=== PATIENT | female | born 1950 | race Caucasian/White ===

== ENCOUNTER → 2018-08-12 12:05 | Outpatient (CLI) | payer MEDICARE, SELFPAY ==
--- NOTE | 2018-08-12 | DI.MG.S_ITS ---
BILATERAL DIGITAL SCREENING MAMMOGRAM 3D/2D WITH CAD: 08/12/2018 CLINICAL: Routine screening. Comparison is made to exams dated: 06/27/2016 mammogram - [facility] and 08/29/2013 mammogram - [facility]. There are scattered fibroglandular elements in both breasts. Current study was also evaluated with a Computer Aided Detection (CAD) system. No significant masses, calcifications, or other findings are seen in either breast. There has been no significant interval change. IMPRESSION: NEGATIVE There is no mammographic evidence of malignancy. A 1 year screening mammogram is recommended. This exam was interpreted at Station ID: [id number]. NOTE: For mammograms, a report in lay terms will be sent to the patient. Approximately 15% of breast malignancies will not be visualized mammographically. In the management of a palpable breast mass, a negative mammogram must not discourage biopsy of a clinically suspicious lesion. Electronically Signed By: Maryse wolff/ben:08/13/2018 12:47:10 letter sent: Normal Exam ACR BI-RADS Category 1: Negative 3341F
== END ==
PROVIDERS: PCP Internal Medicine; Visit Provider Internal Medicine
DX: Z12.31 Encounter for screening mammogram for malignant neoplasm of breast (principal)
CPT/HCPCS: 77063; 77067

== ENCOUNTER → 2019-01-05 09:58 | Outpatient (CLI) | payer MEDICARE, SELFPAY ==
--- NOTE | 2019-01-05 | DI.RAD.S_ITS ---
PROCEDURE: XR KNEE LT 3V INDICATIONS: LEFT HIP/LEFT KNEE PAIN TECHNIQUE: 3 views of the knee were acquired. COMPARISON: [facility], , KNEE 1-2 VIEWS RIGHT, 10/22/2016, 10:32. FINDINGS: Bones: Very mild medial femoral tibial compartment joint space narrowing. No fractures or dislocations. No suspicious bony lesions. Soft tissues: No joint effusion. No suspicious soft tissue calcifications. IMPRESSION: Mild medial femoral tibial compartment osteophytes. No left knee fracture or dislocation. No joint effusion. Dictated by: Campbell Fong M.D. on 01/05/2019 at 11:57 Approved by: Campbell Fong M.D. on 01/05/2019 at 11:58
--- NOTE | 2019-01-05 | DI.RAD.S_ITS ---
PROCEDURE: XR HIP W PEL IF DONE LT 2V INDICATIONS: LEFT HIP/LEFT KNEE PAIN TECHNIQUE: AP pelvis with lateral view(s) of the left hip(s). COMPARISON: None. FINDINGS: Bones: Moderate left hip joint osteoarthritis and mild to moderate right hip joint osteoarthritis is seen. No fractures or dislocations. No evidence of avascular necrosis of femoral head. Pelvic ring appears intact. No suspicious bony lesions. Degenerative disc disease in visualized lower lumbar spine at L4-5 and L5-S1 levels are seen. Soft tissues: The visualized bowel gas pattern is normal. No suspicious soft tissue calcifications. IMPRESSION: Left worse than right bilateral hip joint osteoarthritis. No hip fracture or dislocation. No evidence of avascular necrosis. Dictated by: Campbell Fong M.D. on 01/05/2019 at 11:56 Approved by: Campbell Fong M.D. on 01/05/2019 at 11:57
== END ==
PROVIDERS: PCP Internal Medicine; Visit Provider Internal Medicine
DX: M25.562 Pain in left knee (principal); M25.552 Pain in left hip; M16.0 Bilateral primary osteoarthritis of hip; M51.36 Other intervertebral disc degeneration, lumbar region; M51.37 Other intervertebral disc degeneration, lumbosacral region
CPT/HCPCS: 73502; 73562

== ENCOUNTER → 2019-07-22 10:08 | Outpatient (CLI) | payer MEDICARE, SELFPAY | PROVIDERS: PCP Internal Medicine; Visit Provider Internal Medicine | DX: M85.851 Other specified disorders of bone density and structure, right thigh (principal); Z78.0 Asymptomatic menopausal state; Z82.62 Family history of osteoporosis | CPT/HCPCS: 77080 ==

== ENCOUNTER → 2020-07-16 16:21 | Outpatient (CLI) | payer MEDICARE, SELFPAY ==
--- NOTE | 2020-07-16 | DI.MG.S_ITS ---
BILATERAL DIGITAL SCREENING MAMMOGRAM 3D/2D WITH CAD: 07/16/2020 CLINICAL: Routine screening. Comparison is made to exams dated: 08/12/2018 mammogram, 06/27/2016 mammogram - [facility], and 08/29/2013 mammogram - [facility]. There are scattered fibroglandular elements in both breasts. Current study was also evaluated with a Computer Aided Detection (CAD) system. No significant masses, calcifications, or other findings are seen in either breast. There has been no significant interval change. IMPRESSION: NEGATIVE There is no mammographic evidence of malignancy. A 1 year screening mammogram is recommended. This exam was interpreted at Station ID: [id number]. NOTE: For mammograms, a report in lay terms will be sent to the patient. Approximately 15% of breast malignancies will not be visualized mammographically. In the management of a palpable breast mass, a negative mammogram must not discourage biopsy of a clinically suspicious lesion. Electronically Signed By: Niels nieves/ben:07/16/2020 16:59:43 letter sent: Normal Exam ACR BI-RADS Category 1: Negative 3341F
== END ==
PROVIDERS: PCP Internal Medicine; Referring Provider Internal Medicine; Visit Provider Internal Medicine
DX: Z12.31 Encounter for screening mammogram for malignant neoplasm of breast (principal)
CPT/HCPCS: 77063; 77067

== ENCOUNTER → 2020-07-18 20:06 | Outpatient (ROUT) | payer MEDICARE, SELFPAY ==
[2020-07-18 20:56] LABS: Alanine Aminotransferase 21 IU/L (<35); Albumin Globulin Ratio 1.5 (1.0-2.8); Alkaline Phosphatase 67 U/L (38-126); Aspartate Aminotransferase 29 IU/L (14-36); BUN Creatinine Ratio 18.3 (6-22); Bilirubin Total 0.4 mg/dL (0.2-1.3); Blood Urea Nitrogen 19 mg/dL (7-17); Calcium 9.2 mg/dL (8.4-10.2); Carbon Dioxide 28 mmol/L (22-32); Chloride 107 mmol/L (98-107); Cholesterol 165 mg/dL (140-199); Estimated Glomerular Filt Rate 52.1 mL/min (>60); Globulin 2.6 g/dL (1.7-4.1); Glucose 86 mg/dL (80-110); HDL Cholesterol 62 mg/dL (40-60); HEMOLYSIS < 15 (0-50); LDL Cholesterol Calculated 84 mg/dL (<100); Potassium 4.3 mmol/L (3.4-5.1); Sodium 139 mmol/L (137-145); Total Protein 6.6 g/dL (6.3-8.2); Triglycerides 96 mg/dL (35-150)
== END ==
PROVIDERS: PCP Internal Medicine; Visit Provider Internal Medicine
DX: M85.80 Other specified disorders of bone density and structure, unspecified site (principal); E78.5 Hyperlipidemia, unspecified
CPT/HCPCS: 80053; 80061

== ENCOUNTER 2020-12-31 10:30 | Outpatient (RCR) | payer MEDICARE, SELFPAY ==
--- NOTE | 2020-11-13 16:07 | PT.OPPOC ---
Physical, Occupational & Speech Therapy At [facility] Current Diagnoses Low back pain (11/13/20) Abnormal posture (11/13/20) Weakness (11/13/20) Visit Care Team Role Provider Type Dana Dunlap PA-C Attending Provider Non-Staff Primary Care Provider Referring Provider Specialty: Internal Medicine Address: [address] [place] [address], [facility] Email: [email or web address] Plan Of Care PT-OP-T Assessment and Plan Start: 11/12/20 16:52 Freq: Status: Active Protocol: Document 11/14/20 12:56 ANN (Rec: 11/14/20 16:06 SAK [id number]) Physical Therapy Assessment Rehab Potential Rehabilitation Potential Good Evaluation Complexity Number of Personal Factors/Comorbidities 1-2 Number of Body Systems Impaired 3 Clinical Presentation at Evaluation Evolving Impairments Impairments Activity Tolerance,Pain, Strength Goals Four Impairment postural dysfunction Short Term Goal (STG) Patient to demonstrate good understanding of neutral postural alignment and be able to self correct with min cues STG Duration 12/14/20 Plastic Maker Goal (LTG) Patient able to demonstrate neutral postural alignment statically, and with dynamic functional activities. LTG Duration 01/13/21 Three Impairment weakness throughout core and hips Short Term Goal (STG) patient to be independent and compliant with HEP for purposes of strenghtening and core stabilization for improved function and quality of life STG Duration 12/14/20 Mcc Goal (LTG) Patient to demonstrate at least 4+/5 muscle strength throughout core and hips LTG Duration 01/13/21 Two Impairment pain varies from 3-8/10 in lumbar spine, especially with standing and walki Short Term Goal (STG) decrease pain to no greater than 5/10 with usual activity STG Duration 12/14/20 Mcc Goal (LTG) Decrease pain to no greater than 3/10 with usual activity LTG Duration 01/13/21 One Impairment Oswestry Disability Index score 20% Short Term Goal (STG) Improve activity tolerance as evidenced by decrease in NITO to no greater than 10% STG Duration 12/14/20 Plastic Maker Goal (LTG) Improve activity tolerane as evidenced by decrease in NITO to no greater than 5% LTG Duration 01/13/21 Assessment Summary Assessment Patient presents with function -limiting bilateral LBP, worst with standing and walking. She presents with excessive lumbar lordosis and thoracic kyphosis, deficits in strength in core and hips. Feel she would benefit from PT for postural improvement, therapeutic exercises for core stabilization and strengthening. Modalities and manual techniques as indicated for pain management. She is highly motivated and receptive to instruction. Physical Therapy Plan Frequency and Duration Frequency of Treatment 2x/Week Duration of Treatment 8 weeks Plan of Care Start Date 11/13/20 Plan of Care End Date 01/13/21 Therapeutic Interventions Therapeutic Interventions Gait Training,Home Exercise Program,Neuromuscular Re- education,Patient/Caregiver Education,Self-Care/Home Management,Soft Tissue Mobilization,Taping, Therapeutic Activities, Therapeutic Exercises Modalities Cold Pack/Ice Massage,Electric Stimulation,Hot Packs, Infrared Therapy,Traction- Mechanical,Ultrasound Next Visit Focus/Plan Next Note Type Treatment Note Next Visit Plan Review HEP, further postural correction, core stabilization , and strengthening exercises with progression as tolerated. Modalities and manual therapy as indicated for pain reduction. Plan of Care Dates Plan of Care Start Date 11/13/20 Plan of Care End Date 01/13/21 Electronically Signed by: Renetta Donnelly, PT 11/14/20 [id number] Please Sign and Return: I have reviewed this Plan of Care and certify that the skilled therapy services above are required to meet the patient?s needs. Physician Signature Date Printed Name and Credentials Clinical Instructor Signature Printed Name and Credentials
--- NOTE | 2020-11-13 16:08 | PT.OIE ---
Current Diagnoses Low back pain (11/13/20) Abnormal posture (11/13/20) Weakness (11/13/20) Visit Care Team Role Provider Type Dana Dunlap PA-C Attending Provider Non-Staff Primary Care Provider Referring Provider Specialty: Internal Medicine Address: [address] [place] [address], [facility] Email: [email or web address] [facility] Initial Evaluation PT-OP-A Visit Information Start: 11/12/20 16:52 Freq: Status: Active Protocol: Document 11/13/20 12:56 SAK (Rec: 11/13/20 13:39 SAK [id number]) Out-Patient Physical Therapy Visit Information Visit Information Visit Type Initial Evaluation Visit Start Time 13:00 Visit Stop Time 13:56 Total Visit Minutes 56 Visit Number 1 Evaluation Information Evaluation Date 11/13/20 Precautions Precautions left knee pain, left hip pain (fell down flight of concrete stairs 2010) landed on left knee jamming up into hip (had stress fractures in hip joint and loose body of bone); can't tolerate breastroke, rotation in left hip very limited. PT-OP-B Current Condition Start: 11/12/20 16:52 Freq: Status: Active Protocol: Document 11/13/20 12:56 SAK (Rec: 11/13/20 13:39 SAK [id number]) Current Condition History of Current Condition Onset Date since was in 20's Current Complaints liliana LBP History of Current Condition long history of LBP, worst with standing. States increase in pain with prolonged standing; ie dishes, taking a walk, standing at green party. Usual exercises: biking (better than walking), walking, swimming (has endless pool) but hasn't started; jogs and swims in water. Occasional use of ice and heat . Tries to do some core exercises. No PT before. Has done some exercise classses in the past. Prior Treatments and Tests No recent x-rays; 20+ years ago showed arthritis, orthotics recommended and initially wore custom, now off the shelf. Prior Functional Status Baseline Function- Other mild pain with standing and walking Current Functional Impairments (Reported) Functional Limitations- Other difficult to stand and walk usual times or distances due to pain Personal Factors Other Personal Factors That May Effect recently Therapy/Recovery PT-OP-C Subjective Start: 11/12/20 16:52 Freq: Status: Active Protocol: Document 11/14/20 12:56 SAK (Rec: 11/14/20 16:06 [facility] [id number]) Patient Questionnaires Oswestry Low Back Index Oswestry Score 20 OP-PT Pain Assessment Pain Assessment Grid Paper Pain Assessment Grid Completed Yes Location bilateral lumbar spine Scale Used Numeric (0 - 10) Description Aching,Chronic,Pressure, Pulling,Tender,Tightness Frequency Frequent Pain Aggravating Factors Activity,Standing,Walking Other Pain Alleviating Factors bending forward Patient Stated Pain Goal minimize pain to allow better tolerance for prolonged standing and walking PT-OP-G Mobility & Gait Start: 11/12/20 16:52 Freq: Status: Active Protocol: Document 11/14/20 12:56 [facility] (Rec: 11/14/20 16:06 [facility] [id number]) OP Gait Assessment Gait Gait Assistance Required: Independent Factors Limiting Gait Function Factors Limiting Gait Function Pain Comments Gait Comments excess lumbar lordosis PT-OP-H Neuro Start: 11/12/20 16:52 Freq: Status: Active Protocol: Document 11/14/20 12:56 [facility] (Rec: 11/14/20 16:06 [facility] [id number]) Sensation Evaluation Gross Sensation Gross Sensation WNL PT-OP-J Posture/Palpation/Skin Start: 11/12/20 16:52 Freq: Status: Active Protocol: Document 11/14/20 12:56 [facility] (Rec: 11/14/20 16:06 [facility] [id number]) Posture Evaluation Position Standing T-Spine Posture Increased Kyphosis L-Spine Posture Increased Lordosis Shoulder Posture (L) Rounded,(R) Rounded Scapula Posture (L) Protracted,(R) Protracted Arm Posture (L) Internally Rotated,(R) Internally Rotated Hip Posture (L) Externally Rotated,(R) Externally Rotated Knee Posture (L) Genu Recurvatum,(R) Genu Recurvatum PT-OP-K Range of Motion Start: 11/12/20 16:52 Freq: Status: Active Protocol: Document 11/14/20 12:56 SAK (Rec: 11/14/20 16:06 SAK [id number]) Hip Goniometric Range of Motion Hip Left Internal Rotation 10 External Rotation 20 right Hip ROM WFL Yes Hip ROM Limitations Hip ROM Limitations Bony Restriction PT-OP-M Strength Start: 11/12/20 16:52 Freq: Status: Active Protocol: Document 11/14/20 12:56 [facility] (Rec: 11/14/20 16:06 [facility] [id number]) Trunk Strength Trunk Manual Muscle Testing Testing Position Supine Flexion 4- Good- Extension 3 Fair PT-OP-Q Treatments Start: 11/12/20 16:52 Freq: Status: Active Protocol: Document 11/14/20 12:56 [facility] (Rec: 11/14/20 16:06 [facility] [id number]) Self-Care/Home Management Treatment Education Patient Education Body Mechanics,Home Exercise Program,Pain Management, Posture Other Education Instructed in HEP with written instructions issued. Instrsucted in neutral posture using wall for reference, postural correction, stretching of lumbar spine. Activities Self-Care/Home Management Activities take frequent breaks from standing, put one foot up in cabinet to assist posterior pelvic tilt for back pain relief while standing doing dishes PT-OP-R Modalities Start: 11/12/20 16:52 Freq: Status: Active Protocol: Document 11/14/20 12:56 [facility] (Rec: 11/14/20 16:06 [facility] [id number]) Hot Pack/Cold Pack Treatment Cold Pack Location lumbar spine Patient Position Hooklying Patient Tolerance Good Comments 90/90 posistion PT-OP-T Assessment and Plan Start: 11/12/20 16:52 Freq: Status: Active Protocol: Document 11/14/20 12:56 [facility] (Rec: 11/14/20 16:06 [facility] [id number]) Physical Therapy Assessment Rehab Potential Rehabilitation Potential Good Evaluation Complexity Number of Personal Factors/Comorbidities 1-2 Number of Body Systems Impaired 3 Clinical Presentation at Evaluation Evolving Impairments Impairments Activity Tolerance,Pain, Strength Goals Four Impairment postural dysfunction Short Term Goal (STG) Patient to demonstrate good understanding of neutral postural alignment and be able to self correct with min cues STG Duration 12/14/20 Custodial Goal (LTG) Patient able to demonstrate neutral postural alignment statically, and with dynamic functional activities. LTG Duration 01/13/21 Three Impairment weakness throughout core and hips Short Term Goal (STG) patient to be independent and compliant with HEP for purposes of strenghtening and core stabilization for improved function and quality of life STG Duration 12/14/20 Custodial Goal (LTG) Patient to demonstrate at least 4+/5 muscle strength throughout core and hips LTG Duration 01/13/21 Two Impairment pain varies from 3-8/10 in lumbar spine, especially with standing and walki Short Term Goal (STG) decrease pain to no greater than 5/10 with usual activity STG Duration 12/14/20 Digital Composer Goal (LTG) Decrease pain to no greater than 3/10 with usual activity LTG Duration 01/13/21 One Impairment Oswestry Disability Index score 20% Short Term Goal (STG) Improve activity tolerance as evidenced by decrease in NITO to no greater than 10% STG Duration 12/14/20 Digital Composer Goal (LTG) Improve activity tolerane as evidenced by decrease in NITO to no greater than 5% LTG Duration 01/13/21 Assessment Summary Assessment Patient presents with function -limiting bilateral LBP, worst with standing and walking. She presents with excessive lumbar lordosis and thoracic kyphosis, deficits in strength in core and hips. Feel she would benefit from PT for postural improvement, therapeutic exercises for core stabilization and strengthening. Modalities and manual techniques as indicated for pain management. She is highly motivated and receptive to instruction. Physical Therapy Plan Frequency and Duration Frequency of Treatment 2x/Week Duration of Treatment 8 weeks Plan of Care Start Date 11/13/20 Plan of Care End Date 01/13/21 Therapeutic Interventions Therapeutic Interventions Gait Training,Home Exercise Program,Neuromuscular Re- education,Patient/Caregiver Education,Self-Care/Home Management,Soft Tissue Mobilization,Taping, Therapeutic Activities, Therapeutic Exercises Modalities Cold Pack/Ice Massage,Electric Stimulation,Hot Packs, Infrared Therapy,Traction- Mechanical,Ultrasound Next Visit Focus/Plan Next Note Type Treatment Note Next Visit Plan Review HEP, further postural correction, core stabilization , and strengthening exercises with progression as tolerated. Modalities and manual therapy as indicated for pain reduction.
--- NOTE | 2020-11-14 16:07 | PT.OIE ---
Current Diagnoses Low back pain (11/13/20) Abnormal posture (11/13/20) Weakness (11/13/20) Visit Care Team Role Provider Type Dana Dunlap PA-C Attending Provider Non-Staff Primary Care Provider Referring Provider Specialty: Internal Medicine Address: [address] [place] [address], [facility] Email: [email or web address] [facility] Initial Evaluation PT-OP-A Visit Information Start: 11/12/20 16:52 Freq: Status: Active Protocol: Document 11/13/20 12:56 SAK (Rec: 11/13/20 13:39 SAK [id number]) Out-Patient Physical Therapy Visit Information Visit Information Visit Type Initial Evaluation Visit Start Time 13:00 Visit Stop Time 13:56 Total Visit Minutes 56 Visit Number 1 Evaluation Information Evaluation Date 11/13/20 Precautions Precautions left knee pain, left hip pain (fell down flight of concrete stairs 2010) landed on left knee jamming up into hip (had stress fractures in hip joint and loose body of bone); can't tolerate breastroke, rotation in left hip very limited. PT-OP-B Current Condition Start: 11/12/20 16:52 Freq: Status: Active Protocol: Document 11/13/20 12:56 SAK (Rec: 11/13/20 13:39 SAK [id number]) Current Condition History of Current Condition Onset Date since was in 20's Current Complaints liliana LBP History of Current Condition long history of LBP, worst with standing. States increase in pain with prolonged standing; ie dishes, taking a walk, standing at [employer]. Usual exercises: biking (better than walking), walking, swimming (has endless pool) but hasn't started; jogs and swims in water. Occasional use of ice and heat . Tries to do some core exercises. No PT before. Has done some exercise classses in the past. Prior Treatments and Tests No recent x-rays; 20+ years ago showed arthritis, orthotics recommended and initially wore custom, now off the shelf. Prior Functional Status Baseline Function- Other mild pain with standing and walking Current Functional Impairments (Reported) Functional Limitations- Other difficult to stand and walk usual times or distances due to pain Personal Factors Other Personal Factors That May Effect recently Therapy/Recovery PT-OP-C Subjective Start: 11/12/20 16:52 Freq: Status: Active Protocol: Document 11/14/20 12:56 SAK (Rec: 11/14/20 16:06 [facility] [id number]) Patient Questionnaires Oswestry Low Back Index Oswestry Score 20 OP-PT Pain Assessment Pain Assessment Grid Paper Pain Assessment Grid Completed Yes Location bilateral lumbar spine Scale Used Numeric (0 - 10) Description Aching,Chronic,Pressure, Pulling,Tender,Tightness Frequency Frequent Pain Aggravating Factors Activity,Standing,Walking Other Pain Alleviating Factors bending forward Patient Stated Pain Goal minimize pain to allow better tolerance for prolonged standing and walking PT-OP-G Mobility & Gait Start: 11/12/20 16:52 Freq: Status: Active Protocol: Document 11/14/20 12:56 [facility] (Rec: 11/14/20 16:06 [facility] [id number]) OP Gait Assessment Gait Gait Assistance Required: Independent Factors Limiting Gait Function Factors Limiting Gait Function Pain Comments Gait Comments excess lumbar lordosis PT-OP-H Neuro Start: 11/12/20 16:52 Freq: Status: Active Protocol: Document 11/14/20 12:56 [facility] (Rec: 11/14/20 16:06 [facility] [id number]) Sensation Evaluation Gross Sensation Gross Sensation WNL PT-OP-J Posture/Palpation/Skin Start: 11/12/20 16:52 Freq: Status: Active Protocol: Document 11/14/20 12:56 [facility] (Rec: 11/14/20 16:06 [facility] [id number]) Posture Evaluation Position Standing T-Spine Posture Increased Kyphosis L-Spine Posture Increased Lordosis Shoulder Posture (L) Rounded,(R) Rounded Scapula Posture (L) Protracted,(R) Protracted Arm Posture (L) Internally Rotated,(R) Internally Rotated Hip Posture (L) Externally Rotated,(R) Externally Rotated Knee Posture (L) Genu Recurvatum,(R) Genu Recurvatum PT-OP-K Range of Motion Start: 11/12/20 16:52 Freq: Status: Active Protocol: Document 11/14/20 12:56 SAK (Rec: 11/14/20 16:06 SAK [id number]) Hip Goniometric Range of Motion Hip Left Internal Rotation 10 External Rotation 20 right Hip ROM WFL Yes Hip ROM Limitations Hip ROM Limitations Bony Restriction PT-OP-M Strength Start: 11/12/20 16:52 Freq: Status: Active Protocol: Document 11/14/20 12:56 [facility] (Rec: 11/14/20 16:06 [facility] [id number]) Trunk Strength Trunk Manual Muscle Testing Testing Position Supine Flexion 4- Good- Extension 3 Fair PT-OP-Q Treatments Start: 11/12/20 16:52 Freq: Status: Active Protocol: Document 11/14/20 12:56 [facility] (Rec: 11/14/20 16:06 [facility] [id number]) Self-Care/Home Management Treatment Education Patient Education Body Mechanics,Home Exercise Program,Pain Management, Posture Other Education Instructed in HEP with written instructions issued. Instrsucted in neutral posture using wall for reference, postural correction, stretching of lumbar spine. Activities Self-Care/Home Management Activities take frequent breaks from standing, put one foot up in cabinet to assist posterior pelvic tilt for back pain relief while standing doing dishes PT-OP-R Modalities Start: 11/12/20 16:52 Freq: Status: Active Protocol: Document 11/14/20 12:56 [facility] (Rec: 11/14/20 16:06 [facility] [id number]) Hot Pack/Cold Pack Treatment Cold Pack Location lumbar spine Patient Position Hooklying Patient Tolerance Good Comments 90/90 posistion PT-OP-T Assessment and Plan Start: 11/12/20 16:52 Freq: Status: Active Protocol: Document 11/14/20 12:56 [facility] (Rec: 11/14/20 16:06 [facility] [id number]) Physical Therapy Assessment Rehab Potential Rehabilitation Potential Good Evaluation Complexity Number of Personal Factors/Comorbidities 1-2 Number of Body Systems Impaired 3 Clinical Presentation at Evaluation Evolving Impairments Impairments Activity Tolerance,Pain, Strength Goals Four Impairment postural dysfunction Short Term Goal (STG) Patient to demonstrate good understanding of neutral postural alignment and be able to self correct with min cues STG Duration 12/14/20 Assisted Goal (LTG) Patient able to demonstrate neutral postural alignment statically, and with dynamic functional activities. LTG Duration 01/13/21 Three Impairment weakness throughout core and hips Short Term Goal (STG) patient to be independent and compliant with HEP for purposes of strenghtening and core stabilization for improved function and quality of life STG Duration 12/14/20 Assisted Goal (LTG) Patient to demonstrate at least 4+/5 muscle strength throughout core and hips LTG Duration 01/13/21 Two Impairment pain varies from 3-8/10 in lumbar spine, especially with standing and walki Short Term Goal (STG) decrease pain to no greater than 5/10 with usual activity STG Duration 12/14/20 Principal Technical Architect Goal (LTG) Decrease pain to no greater than 3/10 with usual activity LTG Duration 01/13/21 One Impairment Oswestry Disability Index score 20% Short Term Goal (STG) Improve activity tolerance as evidenced by decrease in NITO to no greater than 10% STG Duration 12/14/20 Principal Technical Architect Goal (LTG) Improve activity tolerane as evidenced by decrease in NITO to no greater than 5% LTG Duration 01/13/21 Assessment Summary Assessment Patient presents with function -limiting bilateral LBP, worst with standing and walking. She presents with excessive lumbar lordosis and thoracic kyphosis, deficits in strength in core and hips. Feel she would benefit from PT for postural improvement, therapeutic exercises for core stabilization and strengthening. Modalities and manual techniques as indicated for pain management. She is highly motivated and receptive to instruction. Physical Therapy Plan Frequency and Duration Frequency of Treatment 2x/Week Duration of Treatment 8 weeks Plan of Care Start Date 11/13/20 Plan of Care End Date 01/13/21 Therapeutic Interventions Therapeutic Interventions Gait Training,Home Exercise Program,Neuromuscular Re- education,Patient/Caregiver Education,Self-Care/Home Management,Soft Tissue Mobilization,Taping, Therapeutic Activities, Therapeutic Exercises Modalities Cold Pack/Ice Massage,Electric Stimulation,Hot Packs, Infrared Therapy,Traction- Mechanical,Ultrasound Next Visit Focus/Plan Next Note Type Treatment Note Next Visit Plan Review HEP, further postural correction, core stabilization , and strengthening exercises with progression as tolerated. Modalities and manual therapy as indicated for pain reduction.
--- NOTE | 2020-11-21 16:55 | PT.OTN ---
Current Diagnoses Low back pain (11/21/20) Abnormal posture (11/21/20) Weakness (11/21/20) Physical Therapy Treatment Note PT-OP-A Visit Information Start: 11/12/20 16:52 Freq: Status: Active Protocol: Document 11/21/20 09:07 SAK (Rec: 11/21/20 09:46 SAK [id number]) Out-Patient Physical Therapy Visit Information Visit Information Visit Type Treatment Note Visit Start Time 09:02 Visit Stop Time 09:58 Total Visit Minutes 56 Visit Number 2 PT-OP-B Current Condition Start: 11/12/20 16:52 Freq: Status: Active Protocol: Document 11/13/20 12:56 SAK (Rec: 11/13/20 13:39 SAK [id number]) Current Condition History of Current Condition Onset Date since was in 20's Current Complaints liliana LBP History of Current Condition long history of LBP, worst with standing. States increase in pain with prolonged standing; ie dishes, taking a walk, standing at [employer]. Usual exercises: biking (better than walking), walking, swimming (has endless pool) but hasn't started; jogs and swims in water. Occasional use of ice and heat . Tries to do some core exercises. No PT before. Has done some exercise classses in the past. Prior Treatments and Tests No recent x-rays; 20+ years ago showed arthritis, orthotics recommended and initially wore custom, now off the shelf. Prior Functional Status Baseline Function- Other mild pain with standing and walking Current Functional Impairments (Reported) Functional Limitations- Other difficult to stand and walk usual times or distances due to pain Personal Factors Other Personal Factors That May Effect recently Therapy/Recovery PT-OP-C Subjective Start: 11/12/20 16:52 Freq: Status: Active Protocol: Document 11/21/20 09:07 SAK (Rec: 11/21/20 09:46 SAK [id number]) OP-PT Subjective Patient Comments Patient Comments No new c/o, tolerating exercises ok. Reports she got increased pain after doing yardwork over the weekend getting ready for company. PT-OP-G Mobility & Gait Start: 11/12/20 16:52 Freq: Status: Active Protocol: Document 11/13/20 12:56 SAK (Rec: 11/14/20 16:06 SAK [id number]) OP Gait Assessment Gait Gait Assistance Required: Independent Factors Limiting Gait Function Factors Limiting Gait Function Pain Comments Gait Comments excess lumbar lordosis PT-OP-H Neuro Start: 11/12/20 16:52 Freq: Status: Active Protocol: Document 11/13/20 12:56 SAK (Rec: 11/14/20 16:06 SAK [id number]) Sensation Evaluation Gross Sensation Gross Sensation WNL PT-OP-J Posture/Palpation/Skin Start: 11/12/20 16:52 Freq: Status: Active Protocol: Document 11/13/20 12:56 SAK (Rec: 11/14/20 16:06 SAK [id number]) Posture Evaluation Position Standing T-Spine Posture Increased Kyphosis L-Spine Posture Increased Lordosis Shoulder Posture (L) Rounded,(R) Rounded Scapula Posture (L) Protracted,(R) Protracted Arm Posture (L) Internally Rotated,(R) Internally Rotated Hip Posture (L) Externally Rotated,(R) Externally Rotated Knee Posture (L) Genu Recurvatum,(R) Genu Recurvatum PT-OP-K Range of Motion Start: 11/12/20 16:52 Freq: Status: Active Protocol: Document 11/13/20 12:56 [facility] (Rec: 11/14/20 16:06 [facility] [id number]) Hip Goniometric Range of Motion Hip Left Internal Rotation 10 External Rotation 20 right Hip ROM WFL Yes Hip ROM Limitations Hip ROM Limitations Bony Restriction PT-OP-M Strength Start: 11/12/20 16:52 Freq: Status: Active Protocol: Document 11/13/20 12:56 [facility] (Rec: 11/14/20 16:06 [facility] [id number]) Trunk Strength Trunk Manual Muscle Testing Testing Position Supine Flexion 4- Good- Extension 3 Fair PT-OP-Q Treatments Start: 11/12/20 16:52 Freq: Status: Active Protocol: Document 11/21/20 09:07 SAK (Rec: 11/21/20 09:46 SAK [id number]) Cardio Equipment Recumbent Stepper (Sci-Fit) Duration (Minutes) 5 Resistance 1.5 Seat Position 9 Other cues for neutral alignment, core stabilization Therapeutic Exercises Supine Exercises segmental bridge Reps/Minutes 10x 5 butterfly stretch Reps/Minutes 2x30 HS stretch Reps/Minutes 2x30 TrA Reps/Minutes 5x5 Standing Exercises rows, shoulder extension Reps/Minutes 10x5 wall posture Reps/Minutes 5 min Comments also lean aways Gait Training Gait Activity postural emphasis Treatment Focus neutral postural alignment Self-Care/Home Management Treatment Education Patient Education Body Mechanics,Home Exercise Program,Pain Management, Posture PT-OP-R Modalities Start: 11/12/20 16:52 Freq: Status: Active Protocol: Document 11/13/20 12:56 [facility] (Rec: 11/14/20 16:06 [facility] [id number]) Hot Pack/Cold Pack Treatment Cold Pack Location lumbar spine Patient Position Hooklying Patient Tolerance Good Comments 90/90 posistion PT-OP-T Assessment and Plan Start: 11/12/20 16:52 Freq: Status: Active Protocol: Document 11/21/20 09:07 [facility] (Rec: 11/21/20 09:46 [facility] [id number]) Physical Therapy Assessment Goals Four Impairment postural dysfunction Short Term Goal (STG) Patient to demonstrate good understanding of neutral postural alignment and be able to self correct with min cues STG Duration 12/14/20 Certification Engineer Goal (LTG) Patient able to demonstrate neutral postural alignment statically, and with dynamic functional activities. LTG Duration 01/13/21 Three Impairment weakness throughout core and hips Short Term Goal (STG) patient to be independent and compliant with HEP for purposes of strenghtening and core stabilization for improved function and quality of life STG Duration 12/14/20 Certification Engineer Goal (LTG) Patient to demonstrate at least 4+/5 muscle strength throughout core and hips LTG Duration 01/13/21 Two Impairment pain varies from 3-8/10 in lumbar spine, especially with standing and walki Short Term Goal (STG) decrease pain to no greater than 5/10 with usual activity STG Duration 12/14/20 Certification Engineer Goal (LTG) Decrease pain to no greater than 3/10 with usual activity LTG Duration 01/13/21 One Impairment Oswestry Disability Index score 20% Short Term Goal (STG) Improve activity tolerance as evidenced by decrease in NITO to no greater than 10% STG Duration 12/14/20 [facility] Goal (LTG) Improve activity tolerane as evidenced by decrease in NITO to no greater than 5% LTG Duration 01/13/21 Assessment Summary Assessment Good tolerance for progression of ther ex, emphasis on neutral postural alignment and core stab. Physical Therapy Plan Frequency and Duration Frequency of Treatment 2x/Week Duration of Treatment 8 weeks Plan of Care Start Date 11/13/20 Plan of Care End Date 01/13/21 Therapeutic Interventions Therapeutic Interventions Gait Training,Home Exercise Program,Neuromuscular Re- education,Patient/Caregiver Education,Self-Care/Home Management,Soft Tissue Mobilization,Taping, Therapeutic Activities, Therapeutic Exercises Modalities Cold Pack/Ice Massage,Electric Stimulation,Hot Packs, Infrared Therapy,Traction- Mechanical,Ultrasound Next Visit Focus/Plan Next Note Type Treatment Note Next Visit Plan Review HEP, further postural correction, core stabilization , and strengthening exercises with progression as tolerated. Modalities and manual therapy as indicated for pain reduction. Add clamshell, sidelying hip abduction
--- NOTE | 2020-11-27 10:56 | PT.OTN ---
Current Diagnoses Low back pain (11/27/20) Abnormal posture (11/27/20) Weakness (11/27/20) Physical Therapy Treatment Note PT-OP-A Visit Information Start: 11/12/20 16:52 Freq: Status: Active Protocol: Document 11/27/20 09:52 SAK (Rec: 11/27/20 09:59 SAK [id number]) Out-Patient Physical Therapy Visit Information Visit Information Visit Type Treatment Note Visit Start Time 09:50 Visit Stop Time 10:45 Total Visit Minutes 56 Visit Number 3 PT-OP-B Current Condition Start: 11/12/20 16:52 Freq: Status: Active Protocol: Document 11/13/20 12:56 SAK (Rec: 11/13/20 13:39 SAK [id number]) Current Condition History of Current Condition Onset Date since was in 's Current Complaints liliana LBP History of Current Condition long history of LBP, worst with standing. States increase in pain with prolonged standing; ie dishes, taking a walk, standing at [employer]. Usual exercises: biking (better than walking), walking, swimming (has endless pool) but hasn't started; jogs and swims in water. Occasional use of ice and heat . Tries to do some core exercises. No PT before. Has done some exercise classses in the past. Prior Treatments and Tests No recent x-rays; 20+ years ago showed arthritis, orthotics recommended and initially wore custom, now off the shelf. Prior Functional Status Baseline Function- Other mild pain with standing and walking Current Functional Impairments (Reported) Functional Limitations- Other difficult to stand and walk usual times or distances due to pain Personal Factors Other Personal Factors That May Effect recently Therapy/Recovery PT-OP-C Subjective Start: 11/12/20 16:52 Freq: Status: Active Protocol: Document 11/27/20 09:52 SAK (Rec: 11/27/20 09:59 SAK [id number]) OP-PT Subjective Patient Comments Patient Comments Able to walk further before feeling back discomfort, doing HEP, paying more attention to her posture. Walked 50 minutes, only toward end felt pain in back. Did have increase in pain after taking apart her recently 's train, though reports was more aware of her posture and body mechanics while doing it. PT-OP-G Mobility & Gait Start: 05/24/21 16:52 Freq: Status: Active Protocol: Document 11/13/20 12:56 [facility] (Rec: 11/14/20 16:06 [facility] [id number]) OP Gait Assessment Gait Gait Assistance Required: Independent Factors Limiting Gait Function Factors Limiting Gait Function Pain Comments Gait Comments excess lumbar lordosis PT-OP-H Neuro Start: 11/12/20 16:52 Freq: Status: Active Protocol: Document 11/13/20 12:56 SAK (Rec: 11/14/20 16:06 [facility] [id number]) Sensation Evaluation Gross Sensation Gross Sensation WNL PT-OP-J Posture/Palpation/Skin Start: 11/12/20 16:52 Freq: Status: Active Protocol: Document 11/13/20 12:56 [facility] (Rec: 11/14/20 16:06 [facility] [id number]) Posture Evaluation Position Standing T-Spine Posture Increased Kyphosis L-Spine Posture Increased Lordosis Shoulder Posture (L) Rounded,(R) Rounded Scapula Posture (L) Protracted,(R) Protracted Arm Posture (L) Internally Rotated,(R) Internally Rotated Hip Posture (L) Externally Rotated,(R) Externally Rotated Knee Posture (L) Genu Recurvatum,(R) Genu Recurvatum PT-OP-K Range of Motion Start: 11/12/20 16:52 Freq: Status: Active Protocol: Document 11/13/20 12:56 [facility] (Rec: 11/14/20 16:06 [facility] [id number]) Hip Goniometric Range of Motion Hip Left Internal Rotation 10 External Rotation 20 right Hip ROM WFL Yes Hip ROM Limitations Hip ROM Limitations Bony Restriction PT-OP-M Strength Start: 11/12/20 16:52 Freq: Status: Active Protocol: Document 11/13/20 12:56 [facility] (Rec: 11/14/20 16:06 [facility] [id number]) Trunk Strength Trunk Manual Muscle Testing Testing Position Supine Flexion 4- Good- Extension 3 Fair PT-OP-Q Treatments Start: 11/12/20 16:52 Freq: Status: Active Protocol: Document 11/27/20 09:52 [facility] (Rec: 11/27/20 10:31 SAK [id number]) Cardio Equipment Recumbent Stepper (Sci-Fit) Duration (Minutes) 10 Resistance 2.0 Seat Position 9 Other cues for neutral alignment, core stabilization Gym Equipment Sport Cord fwd,bck, side Cord/Resistance green Comments cues for postural alignment and core stabilization. Therapeutic Exercises Sidelying Exercises clamshell Reps/Minutes 10x hip abd Reps/Minutes 10x Standing Exercises rows, shoulder extension Resistance L1 TB Reps/Minutes 10x5 Comments cues for technique, posture and core stab wall posture Reps/Minutes 5 min Comments also lean aways, moderate verbal and manual cues Self-Care/Home Management Treatment Education Patient Education Body Mechanics,Home Exercise Program,Pain Management, Posture PT-OP-R Modalities Start: 11/12/20 16:52 Freq: Status: Active Protocol: Document 11/13/20 12:56 SAK (Rec: 11/14/20 16:06 SAK [id number]) Hot Pack/Cold Pack Treatment Cold Pack Location lumbar spine Patient Position Hooklying Patient Tolerance Good Comments 90/90 posistion PT-OP-T Assessment and Plan Start: 11/12/20 16:52 Freq: Status: Active Protocol: Document 11/27/20 09:52 SAK (Rec: 11/27/20 09:59 SAK [id number]) Physical Therapy Assessment Goals Four Impairment postural dysfunction Short Term Goal (STG) Patient to demonstrate good understanding of neutral postural alignment and be able to self correct with min cues STG Duration 12/14/20 [facility] Goal (LTG) Patient able to demonstrate neutral postural alignment statically, and with dynamic functional activities. LTG Duration 01/13/21 Three Impairment weakness throughout core and hips Short Term Goal (STG) patient to be independent and compliant with HEP for purposes of strenghtening and core stabilization for improved function and quality of life STG Duration 12/14/20 Staff Radiation Therapist Goal (LTG) Patient to demonstrate at least 4+/5 muscle strength throughout core and hips LTG Duration 01/13/21 Two Impairment pain varies from 3-8/10 in lumbar spine, especially with standing and walki Short Term Goal (STG) decrease pain to no greater than 5/10 with usual activity STG Duration 12/14/20 Jail Goal (LTG) Decrease pain to no greater than 3/10 with usual activity LTG Duration 01/13/21 One Impairment Oswestry Disability Index score 20% Short Term Goal (STG) Improve activity tolerance as evidenced by decrease in NITO to no greater than 10% STG Duration 12/14/20 [facility] Goal (LTG) Improve activity tolerane as evidenced by decrease in NITO to no greater than 5% LTG Duration 01/13/21 Progress Towards Goals Progress Towards Goals Progressing Toward Goals Assessment Summary Assessment added resisted gait with sport cord with fair tolerance; some discomfort after. Needs moderate verbal and manual cues for neutral postural alignment and core activation with all activities. Improved tolerance for gait. Physical Therapy Plan Frequency and Duration Frequency of Treatment 2x/Week Duration of Treatment 8 weeks Plan of Care Start Date 11/13/20 Plan of Care End Date 01/13/21 Therapeutic Interventions Therapeutic Interventions Gait Training,Home Exercise Program,Neuromuscular Re- education,Patient/Caregiver Education,Self-Care/Home Management,Soft Tissue Mobilization,Taping, Therapeutic Activities, Therapeutic Exercises Modalities Cold Pack/Ice Massage,Electric Stimulation,Hot Packs, Infrared Therapy,Traction- Mechanical,Ultrasound Next Visit Focus/Plan Next Note Type Treatment Note Next Visit Plan Continue progression of ther ex, postural correction, core stabilization ex.
--- NOTE | 2020-11-29 12:19 | PT.OTN ---
Current Diagnoses Low back pain (11/29/20) Abnormal posture (11/29/20) Weakness (11/29/20) Physical Therapy Treatment Note PT-OP-A Visit Information Start: 11/12/20 16:52 Freq: Status: Active Protocol: Document 11/29/20 09:54 SAK (Rec: 11/29/20 10:32 SAK [id number]) Out-Patient Physical Therapy Visit Information Visit Information Visit Type Treatment Note Visit Start Time 09:50 Visit Stop Time 10:45 Total Visit Minutes 56 Visit Number 4 PT-OP-B Current Condition Start: 11/12/20 16:52 Freq: Status: Active Protocol: Document 11/13/20 12:56 SAK (Rec: 11/13/20 13:39 SAK [id number]) Current Condition History of Current Condition Onset Date since was in 's Current Complaints liliana LBP History of Current Condition long history of LBP, worst with standing. States increase in pain with prolonged standing; ie dishes, taking a walk, standing at [employer]. Usual exercises: biking (better than walking), walking, swimming (has endless pool) but hasn't started; jogs and swims in water. Occasional use of ice and heat . Tries to do some core exercises. No PT before. Has done some exercise classses in the past. Prior Treatments and Tests No recent x-rays; 20+ years ago showed arthritis, orthotics recommended and initially wore custom, now off the shelf. Prior Functional Status Baseline Function- Other mild pain with standing and walking Current Functional Impairments (Reported) Functional Limitations- Other difficult to stand and walk usual times or distances due to pain Personal Factors Other Personal Factors That May Effect recently Therapy/Recovery PT-OP-C Subjective Start: 11/12/20 16:52 Freq: Status: Active Protocol: Document 11/29/20 09:54 SAK (Rec: 11/29/20 10:32 SAK [id number]) OP-PT Subjective Patient Comments Patient Comments Back has been doing really well, but having right foot discsomfort recently (past couple days, some cramping), bad enough to keep awake. Increased pain with standing and walking. PT-OP-G Mobility & Gait Start: 11/12/20 16:52 Freq: Status: Active Protocol: Document 11/13/20 12:56 SAK (Rec: 11/14/20 16:06 SAK [id number]) OP Gait Assessment Gait Gait Assistance Required: Independent Factors Limiting Gait Function Factors Limiting Gait Function Pain Comments Gait Comments excess lumbar lordosis PT-OP-H Neuro Start: 11/12/20 16:52 Freq: Status: Active Protocol: Document 11/13/20 12:56 [facility] (Rec: 11/14/20 16:06 [facility] [id number]) Sensation Evaluation Gross Sensation Gross Sensation WNL PT-OP-J Posture/Palpation/Skin Start: 11/12/20 16:52 Freq: Status: Active Protocol: Document 11/13/20 12:56 [facility] (Rec: 11/14/20 16:06 [facility] [id number]) Posture Evaluation Position Standing T-Spine Posture Increased Kyphosis L-Spine Posture Increased Lordosis Shoulder Posture (L) Rounded,(R) Rounded Scapula Posture (L) Protracted,(R) Protracted Arm Posture (L) Internally Rotated,(R) Internally Rotated Hip Posture (L) Externally Rotated,(R) Externally Rotated Knee Posture (L) Genu Recurvatum,(R) Genu Recurvatum PT-OP-K Range of Motion Start: 11/12/20 16:52 Freq: Status: Active Protocol: Document 11/13/20 12:56 [facility] (Rec: 11/14/20 16:06 [facility] [id number]) Hip Goniometric Range of Motion Hip Left Internal Rotation 10 External Rotation 20 right Hip ROM WFL Yes Hip ROM Limitations Hip ROM Limitations Bony Restriction PT-OP-M Strength Start: 11/12/20 16:52 Freq: Status: Active Protocol: Document 11/13/20 12:56 [facility] (Rec: 11/14/20 16:06 [facility] [id number]) Trunk Strength Trunk Manual Muscle Testing Testing Position Supine Flexion 4- Good- Extension 3 Fair PT-OP-Q Treatments Start: 11/12/20 16:52 Freq: Status: Active Protocol: Document 11/29/20 09:54 [facility] (Rec: 11/29/20 10:32 [facility] [id number]) Cardio Equipment Recumbent Stepper (Sci-Fit) Duration (Minutes) 10 Resistance 2.0 Seat Position 9 Other cues for neutral alignment, core stabilization Therapeutic Exercises Supine Exercises DKTC Reps/Minutes 2X30 SKTC Reps/Minutes 2x30 1/2 roll DLS Supine Exercise Name WBOS, NBOS, EO, EC, liliana and unil UE flex and hor abd, pillow squeeze, ab w/ Self-Care/Home Management Treatment Education Patient Education Body Mechanics,Home Exercise Program,Pain Management, Posture Other Education heat and/or ice to right foot PT-OP-R Modalities Start: 11/12/20 16:52 Freq: Status: Active Protocol: Document 11/13/20 12:56 [facility] (Rec: 11/14/20 16:06 [facility] [id number]) Hot Pack/Cold Pack Treatment Cold Pack Location lumbar spine Patient Position Hooklying Patient Tolerance Good Comments 90/90 posistion PT-OP-T Assessment and Plan Start: 11/12/20 16:52 Freq: Status: Active Protocol: Document 11/29/20 09:54 [facility] (Rec: 11/29/20 10:32 [facility] [id number]) Physical Therapy Assessment Goals Four Impairment postural dysfunction Short Term Goal (STG) Patient to demonstrate good understanding of neutral postural alignment and be able to self correct with min cues STG Duration 12/14/20 Head Banquet Waiter/Waitress Goal (LTG) Patient able to demonstrate neutral postural alignment statically, and with dynamic functional activities. LTG Duration 01/13/21 Three Impairment weakness throughout core and hips Short Term Goal (STG) patient to be independent and compliant with HEP for purposes of strenghtening and core stabilization for improved function and quality of life STG Duration 12/14/20 Head Banquet Waiter/Waitress Goal (LTG) Patient to demonstrate at least 4+/5 muscle strength throughout core and hips LTG Duration 01/13/21 Two Impairment pain varies from 3-8/10 in lumbar spine, especially with standing and walki Short Term Goal (STG) decrease pain to no greater than 5/10 with usual activity STG Duration 12/14/20 Nursing Home Goal (LTG) Decrease pain to no greater than 3/10 with usual activity LTG Duration 01/13/21 One Impairment Oswestry Disability Index score 20% Short Term Goal (STG) Improve activity tolerance as evidenced by decrease in NITO to no greater than 10% STG Duration 12/14/20 Head Banquet Waiter/Waitress Goal (LTG) Improve activity tolerane as evidenced by decrease in NITO to no greater than 5% LTG Duration 01/13/21 Progress Towards Goals Progress Towards Goals Progressing Toward Goals Assessment Summary Assessment Feel new ex of HC stretch on KIMBERLI and/or gait with sport cord may have caused patient foot pain, those exercises held today. Trial DLS on 1/2 roll done today with patient noting most difficulty doing single UE or LE on left indicating poor ability to stabilize on right side. May be interested in obtaining 1/2 roll for use at home. Back pain decreased. Physical Therapy Plan Frequency and Duration Frequency of Treatment 2x/Week Duration of Treatment 8 weeks Plan of Care Start Date 11/13/20 Plan of Care End Date 01/13/21 Therapeutic Interventions Therapeutic Interventions Gait Training,Home Exercise Program,Neuromuscular Re- education,Patient/Caregiver Education,Self-Care/Home Management,Soft Tissue Mobilization,Taping, Therapeutic Activities, Therapeutic Exercises Modalities Cold Pack/Ice Massage,Electric Stimulation,Hot Packs, Infrared Therapy,Traction- Mechanical,Ultrasound Next Visit Focus/Plan Next Note Type Treatment Note Next Visit Plan Continue progression of ther ex, postural correction, core stabilization ex, more standing functional ex as tolerated
--- NOTE | 2020-12-04 12:05 | PT.OTN ---
Current Diagnoses Low back pain (12/04/20) Abnormal posture (12/04/20) Weakness (12/04/20) Physical Therapy Treatment Note PT-OP-A Visit Information Start: 11/12/20 16:52 Freq: Status: Active Protocol: Document 12/04/20 11:14 SAK (Rec: 12/04/20 11:58 SAK [id number]) Out-Patient Physical Therapy Visit Information Visit Information Visit Type Treatment Note Visit Start Time 11:15 Visit Stop Time 12:06 Total Visit Minutes 56 Visit Number 5 PT-OP-B Current Condition Start: 11/12/20 16:52 Freq: Status: Active Protocol: Document 11/13/20 12:56 SAK (Rec: 11/13/20 13:39 SAK [id number]) Current Condition History of Current Condition Onset Date since was in ' Current Complaints liliana LBP History of Current Condition long history of LBP, worst with standing. States increase in pain with prolonged standing; ie dishes, taking a walk, standing at [employer]. Usual exercises: biking (better than walking), walking, swimming (has endless pool) but hasn't started; jogs and swims in water. Occasional use of ice and heat . Tries to do some core exercises. No PT before. Has done some exercise classses in the past. Prior Treatments and Tests No recent x-rays; 20+ years ago showed arthritis, orthotics recommended and initially wore custom, now off the shelf. Prior Functional Status Baseline Function- Other mild pain with standing and walking Current Functional Impairments (Reported) Functional Limitations- Other difficult to stand and walk usual times or distances due to pain Personal Factors Other Personal Factors That May Effect recently Therapy/Recovery PT-OP-C Subjective Start: 11/12/20 16:52 Freq: Status: Active Protocol: Document 12/04/20 11:14 SAK (Rec: 12/04/20 11:58 SAK [id number]) OP-PT Subjective Patient Comments Patient Comments No new c/o, foot pain has resolved, has been doing a lot of lifting and moving, trying to keep posture and body mechanics in mind when doing. No increase in back pain. PT-OP-G Mobility & Gait Start: 11/12/20 16:52 Freq: Status: Active Protocol: Document 11/13/20 12:56 SAK (Rec: 11/14/20 16:06 SAK [id number]) OP Gait Assessment Gait Gait Assistance Required: Independent Factors Limiting Gait Function Factors Limiting Gait Function Pain Comments Gait Comments excess lumbar lordosis PT-OP-H Neuro Start: 11/12/20 16:52 Freq: Status: Active Protocol: Document 11/13/20 12:56 [facility] (Rec: 11/14/20 16:06 [facility] [id number]) Sensation Evaluation Gross Sensation Gross Sensation WNL PT-OP-J Posture/Palpation/Skin Start: 11/12/20 16:52 Freq: Status: Active Protocol: Document 11/13/20 12:56 [facility] (Rec: 11/14/20 16:06 [facility] [id number]) Posture Evaluation Position Standing T-Spine Posture Increased Kyphosis L-Spine Posture Increased Lordosis Shoulder Posture (L) Rounded,(R) Rounded Scapula Posture (L) Protracted,(R) Protracted Arm Posture (L) Internally Rotated,(R) Internally Rotated Hip Posture (L) Externally Rotated,(R) Externally Rotated Knee Posture (L) Genu Recurvatum,(R) Genu Recurvatum PT-OP-K Range of Motion Start: 11/12/20 16:52 Freq: Status: Active Protocol: Document 11/13/20 12:56 [facility] (Rec: 11/14/20 16:06 [facility] [id number]) Hip Goniometric Range of Motion Hip Left Internal Rotation 10 External Rotation 20 right Hip ROM WFL Yes Hip ROM Limitations Hip ROM Limitations Bony Restriction PT-OP-M Strength Start: 11/12/20 16:52 Freq: Status: Active Protocol: Document 11/13/20 12:56 [facility] (Rec: 11/14/20 16:06 [facility] [id number]) Trunk Strength Trunk Manual Muscle Testing Testing Position Supine Flexion 4- Good- Extension 3 Fair PT-OP-Q Treatments Start: 11/12/20 16:52 Freq: Status: Active Protocol: Document 12/04/20 11:14 [facility] (Rec: 12/04/20 11:58 SAK [id number]) Cardio Equipment Recumbent Stepper (Sci-Fit) Duration (Minutes) 10 Resistance 2.0 Seat Position 9 Other cues for neutral alignment, core stabilization Therapeutic Exercises Supine Exercises DKTC Reps/Minutes 2X30 SKTC Reps/Minutes 2x30 1/2 roll DLS Supine Exercise Name WBOS, NBOS, EO, EC, liliana and unil UE flex and hor abd, pillow squeeze, ab w/ Self-Care/Home Management Treatment Education Patient Education Body Mechanics,Home Exercise Program,Pain Management, Posture Other Education reviewed posture and body mechanics principles Patient given information for purchasing 1/2 roll PT-OP-R Modalities Start: 11/12/20 16:52 Freq: Status: Active Protocol: Document 11/13/20 12:56 SAK (Rec: 11/14/20 16:06 SAK [id number]) Hot Pack/Cold Pack Treatment Cold Pack Location lumbar spine Patient Position Hooklying Patient Tolerance Good Comments 90/90 posistion PT-OP-T Assessment and Plan Start: 11/12/20 16:52 Freq: Status: Active Protocol: Document 12/04/20 11:14 SAK (Rec: 12/04/20 11:58 SAK [id number]) Physical Therapy Assessment Goals Four Impairment postural dysfunction Short Term Goal (STG) Patient to demonstrate good understanding of neutral postural alignment and be able to self correct with min cues STG Duration 12/14/20 Youtuber Goal (LTG) Patient able to demonstrate neutral postural alignment statically, and with dynamic functional activities. LTG Duration 01/13/21 Three Impairment weakness throughout core and hips Short Term Goal (STG) patient to be independent and compliant with HEP for purposes of strenghtening and core stabilization for improved function and quality of life STG Duration 12/14/20 Longterm Goal (LTG) Patient to demonstrate at least 4+/5 muscle strength throughout core and hips LTG Duration 01/13/21 Two Impairment pain varies from 3-8/10 in lumbar spine, especially with standing and walki Short Term Goal (STG) decrease pain to no greater than 5/10 with usual activity STG Duration 12/14/20 Longterm Goal (LTG) Decrease pain to no greater than 3/10 with usual activity LTG Duration 01/13/21 One Impairment Oswestry Disability Index score 20% Short Term Goal (STG) Improve activity tolerance as evidenced by decrease in NITO to no greater than 10% STG Duration 12/14/20 Longterm Goal (LTG) Improve activity tolerane as evidenced by decrease in NITO to no greater than 5% LTG Duration 01/13/21 Progress Towards Goals Progress Towards Goals Progressing Toward Goals Assessment Summary Assessment Patient given information to be able to purchase 1/2 roll, likes those exercises, challenging to core but no pain. Pain 1-2/10 at most now , compliant to HEP, using ice or heat as needed. Agreeable to follow-up appointment in 3- 4 weeks. Physical Therapy Plan Frequency and Duration Frequency of Treatment 2x/Week Duration of Treatment 8 weeks Plan of Care Start Date 11/13/20 Plan of Care End Date 01/13/21 Therapeutic Interventions Therapeutic Interventions Gait Training,Home Exercise Program,Neuromuscular Re- education,Patient/Caregiver Education,Self-Care/Home Management,Soft Tissue Mobilization,Taping, Therapeutic Activities, Therapeutic Exercises Modalities Cold Pack/Ice Massage,Electric Stimulation,Hot Packs, Infrared Therapy,Traction- Mechanical,Ultrasound Next Visit Focus/Plan Next Note Type Treatment Note Next Visit Plan Follow-up appointment. Assess patient progress, any further need for PT.
--- NOTE | 2020-12-04 12:05 | PT.OTN ---
Current Diagnoses Low back pain (12/04/20) Abnormal posture (12/04/20) Weakness (12/04/20) Physical Therapy Treatment Note PT-OP-A Visit Information Start: 11/12/20 16:52 Freq: Status: Active Protocol: Document 12/04/20 11:14 SAK (Rec: 12/04/20 11:58 SAK [id number]) Out-Patient Physical Therapy Visit Information Visit Information Visit Type Treatment Note Visit Start Time 11:15 Visit Stop Time 12:06 Total Visit Minutes 56 Visit Number 5 PT-OP-B Current Condition Start: 11/12/20 16:52 Freq: Status: Active Protocol: Document 11/13/20 12:56 SAK (Rec: 11/13/20 13:39 SAK [id number]) Current Condition History of Current Condition Onset Date since was in ' Current Complaints liliana LBP History of Current Condition long history of LBP, worst with standing. States increase in pain with prolonged standing; ie dishes, taking a walk, standing at [employer]. Usual exercises: biking (better than walking), walking, swimming (has endless pool) but hasn't started; jogs and swims in water. Occasional use of ice and heat . Tries to do some core exercises. No PT before. Has done some exercise classses in the past. Prior Treatments and Tests No recent x-rays; 20+ years ago showed arthritis, orthotics recommended and initially wore custom, now off the shelf. Prior Functional Status Baseline Function- Other mild pain with standing and walking Current Functional Impairments (Reported) Functional Limitations- Other difficult to stand and walk usual times or distances due to pain Personal Factors Other Personal Factors That May Effect recently Therapy/Recovery PT-OP-C Subjective Start: 11/12/20 16:52 Freq: Status: Active Protocol: Document 12/04/20 11:14 SAK (Rec: 12/04/20 11:58 SAK [id number]) OP-PT Subjective Patient Comments Patient Comments No new c/o, foot pain has resolved, has been doing a lot of lifting and moving, trying to keep posture and body mechanics in mind when doing. No increase in back pain. PT-OP-G Mobility & Gait Start: 11/12/20 16:52 Freq: Status: Active Protocol: Document 11/13/20 12:56 SAK (Rec: 11/14/20 16:06 SAK [id number]) OP Gait Assessment Gait Gait Assistance Required: Independent Factors Limiting Gait Function Factors Limiting Gait Function Pain Comments Gait Comments excess lumbar lordosis PT-OP-H Neuro Start: 11/12/20 16:52 Freq: Status: Active Protocol: Document 11/13/20 12:56 [facility] (Rec: 11/14/20 16:06 [facility] [id number]) Sensation Evaluation Gross Sensation Gross Sensation WNL PT-OP-J Posture/Palpation/Skin Start: 11/12/20 16:52 Freq: Status: Active Protocol: Document 11/13/20 12:56 [facility] (Rec: 11/14/20 16:06 [facility] [id number]) Posture Evaluation Position Standing T-Spine Posture Increased Kyphosis L-Spine Posture Increased Lordosis Shoulder Posture (L) Rounded,(R) Rounded Scapula Posture (L) Protracted,(R) Protracted Arm Posture (L) Internally Rotated,(R) Internally Rotated Hip Posture (L) Externally Rotated,(R) Externally Rotated Knee Posture (L) Genu Recurvatum,(R) Genu Recurvatum PT-OP-K Range of Motion Start: 11/12/20 16:52 Freq: Status: Active Protocol: Document 11/13/20 12:56 [facility] (Rec: 11/14/20 16:06 [facility] [id number]) Hip Goniometric Range of Motion Hip Left Internal Rotation 10 External Rotation 20 right Hip ROM WFL Yes Hip ROM Limitations Hip ROM Limitations Bony Restriction PT-OP-M Strength Start: 11/12/20 16:52 Freq: Status: Active Protocol: Document 11/13/20 12:56 [facility] (Rec: 11/14/20 16:06 [facility] [id number]) Trunk Strength Trunk Manual Muscle Testing Testing Position Supine Flexion 4- Good- Extension 3 Fair PT-OP-Q Treatments Start: 11/12/20 16:52 Freq: Status: Active Protocol: Document 12/04/20 11:14 [facility] (Rec: 12/04/20 11:58 SAK [id number]) Cardio Equipment Recumbent Stepper (Sci-Fit) Duration (Minutes) 10 Resistance 2.0 Seat Position 9 Other cues for neutral alignment, core stabilization Therapeutic Exercises Supine Exercises DKTC Reps/Minutes 2X30 SKTC Reps/Minutes 2x30 1/2 roll DLS Supine Exercise Name WBOS, NBOS, EO, EC, liliana and unil UE flex and hor abd, pillow squeeze, ab w/ Self-Care/Home Management Treatment Education Patient Education Body Mechanics,Home Exercise Program,Pain Management, Posture Other Education reviewed posture and body mechanics principles Patient given information for purchasing 1/2 roll PT-OP-R Modalities Start: 11/12/20 16:52 Freq: Status: Active Protocol: Document 12/04/20 11:14 [facility] (Rec: 12/04/20 12:05 [facility] [id number]) Hot Pack/Cold Pack Treatment Cold Pack Location lumbar spine Patient Position Hooklying Patient Tolerance Good Comments 90/90 posistion PT-OP-T Assessment and Plan Start: 11/12/20 16:52 Freq: Status: Active Protocol: Document 12/04/20 11:14 [facility] (Rec: 12/04/20 11:58 [facility] [id number]) Physical Therapy Assessment Goals Four Impairment postural dysfunction Short Term Goal (STG) Patient to demonstrate good understanding of neutral postural alignment and be able to self correct with min cues STG Duration 12/14/20 Alf Goal (LTG) Patient able to demonstrate neutral postural alignment statically, and with dynamic functional activities. LTG Duration 01/13/21 Three Impairment weakness throughout core and hips Short Term Goal (STG) patient to be independent and compliant with HEP for purposes of strenghtening and core stabilization for improved function and quality of life STG Duration 12/14/20 Guitar Repair Technician Goal (LTG) Patient to demonstrate at least 4+/5 muscle strength throughout core and hips LTG Duration 01/13/21 Two Impairment pain varies from 3-8/10 in lumbar spine, especially with standing and walki Short Term Goal (STG) decrease pain to no greater than 5/10 with usual activity STG Duration 12/14/20 Guitar Repair Technician Goal (LTG) Decrease pain to no greater than 3/10 with usual activity LTG Duration 01/13/21 One Impairment Oswestry Disability Index score 20% Short Term Goal (STG) Improve activity tolerance as evidenced by decrease in NITO to no greater than 10% STG Duration 12/14/20 Guitar Repair Technician Goal (LTG) Improve activity tolerane as evidenced by decrease in NITO to no greater than 5% LTG Duration 01/13/21 Progress Towards Goals Progress Towards Goals Progressing Toward Goals Assessment Summary Assessment Patient given information to be able to purchase 1/2 roll, likes those exercises, challenging to core but no pain. Pain 1-2/10 at most now , compliant to HEP, using ice or heat as needed. Agreeable to follow-up appointment in 3- 4 weeks. Physical Therapy Plan Frequency and Duration Frequency of Treatment 2x/Week Duration of Treatment 8 weeks Plan of Care Start Date 11/13/20 Plan of Care End Date 01/13/21 Therapeutic Interventions Therapeutic Interventions Gait Training,Home Exercise Program,Neuromuscular Re- education,Patient/Caregiver Education,Self-Care/Home Management,Soft Tissue Mobilization,Taping, Therapeutic Activities, Therapeutic Exercises Modalities Cold Pack/Ice Massage,Electric Stimulation,Hot Packs, Infrared Therapy,Traction- Mechanical,Ultrasound Next Visit Focus/Plan Next Note Type Treatment Note Next Visit Plan Follow-up appointment. Assess patient progress, any further need for PT.
--- NOTE | 2020-12-31 17:37 | PT.OTN ---
Current Diagnoses Low back pain (12/31/20) Abnormal posture (12/31/20) Weakness (12/31/20) Physical Therapy Treatment Note PT-OP-A Visit Information Start: 11/12/20 16:52 Freq: Status: Active Protocol: Document 12/31/20 10:35 SAK (Rec: 12/31/20 11:16 SAK [id number]) Out-Patient Physical Therapy Visit Information Visit Information Visit Type Treatment Note Visit Start Time 10:30 Visit Stop Time 11:26 Total Visit Minutes 56 Visit Number 6 PT-OP-B Current Condition Start: 11/12/20 16:52 Freq: Status: Active Protocol: Document 11/13/20 12:56 SAK (Rec: 11/13/20 13:39 SAK [id number]) Current Condition History of Current Condition Onset Date since was in ' Current Complaints liliana LBP History of Current Condition long history of LBP, worst with standing. States increase in pain with prolonged standing; ie dishes, taking a walk, standing at [employer] party. Usual exercises: biking (better than walking), walking, swimming (has endless pool) but hasn't started; jogs and swims in water. Occasional use of ice and heat . Tries to do some core exercises. No PT before. Has done some exercise classses in the past. Prior Treatments and Tests No recent x-rays; 20+ years ago showed arthritis, orthotics recommended and initially wore custom, now off the shelf. Prior Functional Status Baseline Function- Other mild pain with standing and walking Current Functional Impairments (Reported) Functional Limitations- Other difficult to stand and walk usual times or distances due to pain Personal Factors Other Personal Factors That May Effect recently Therapy/Recovery PT-OP-C Subjective Start: 11/12/20 16:52 Freq: Status: Active Protocol: Document 12/31/20 10:35 SAK (Rec: 12/31/20 11:16 SAK [id number]) OP-PT Subjective Patient Comments Patient Comments Back has been doing pretty well. Did have a setback after falling on her bottom while walking at [place]; couldn't go for walks or do her exercises for about 10 days, had pain front of left hip. Used ice and heat and rested. No problems with any exercises. Received her 1/2 roll 2 days before she fell, has only used a couple times. No change in her back pain and states her hip continues to gradually get better. Agreeable to discharge from PT after today's sesison. PT-OP-G Mobility & Gait Start: 11/12/20 16:52 Freq: Status: Active Protocol: Document 11/13/20 12:56 SAK (Rec: 11/14/20 16:06 [facility] [id number]) OP Gait Assessment Gait Gait Assistance Required: Independent Factors Limiting Gait Function Factors Limiting Gait Function Pain Comments Gait Comments excess lumbar lordosis PT-OP-H Neuro Start: 11/12/20 16:52 Freq: Status: Active Protocol: Document 11/13/20 12:56 SAK (Rec: 11/14/20 16:06 SAK [id number]) Sensation Evaluation Gross Sensation Gross Sensation WNL PT-OP-J Posture/Palpation/Skin Start: 11/12/20 16:52 Freq: Status: Active Protocol: Document 11/13/20 12:56 [facility] (Rec: 11/14/20 16:06 [facility] [id number]) Posture Evaluation Position Standing T-Spine Posture Increased Kyphosis L-Spine Posture Increased Lordosis Shoulder Posture (L) Rounded,(R) Rounded Scapula Posture (L) Protracted,(R) Protracted Arm Posture (L) Internally Rotated,(R) Internally Rotated Hip Posture (L) Externally Rotated,(R) Externally Rotated Knee Posture (L) Genu Recurvatum,(R) Genu Recurvatum PT-OP-K Range of Motion Start: 11/12/20 16:52 Freq: Status: Active Protocol: Document 11/13/20 12:56 [facility] (Rec: 11/14/20 16:06 [facility] [id number]) Hip Goniometric Range of Motion Hip Left Internal Rotation 10 External Rotation 20 right Hip ROM WFL Yes Hip ROM Limitations Hip ROM Limitations Bony Restriction PT-OP-M Strength Start: 11/12/20 16:52 Freq: Status: Active Protocol: Document 11/13/20 12:56 SAK (Rec: 11/14/20 16:06 [facility] [id number]) Trunk Strength Trunk Manual Muscle Testing Testing Position Supine Flexion 4- Good- Extension 3 Fair PT-OP-Q Treatments Start: 11/12/20 16:52 Freq: Status: Active Protocol: Document 12/31/20 10:35 SAK (Rec: 12/31/20 11:16 [facility] [id number]) Cardio Equipment Recumbent Stepper (Sci-Fit) Duration (Minutes) 10 Resistance 2.0 Seat Position 9 Other cues for neutral alignment, core stabilization Therapeutic Exercises Supine Exercises 1/2 roll DLS Supine Exercise Name WBOS, NBOS, EO, EC, liliana and unil UE flex and hor abd, pillow squeeze, ab w/ segmental bridge Reps/Minutes 10x 5 Sidelying Exercises clamshell Sidelying Exercise Name also reverse clamshell Resistance L2 TB Reps/Minutes 10x Comments cues for neutral alignment hip abd Reps/Minutes 10x Comments cues for neutral alignment Standing Exercises rows, shoulder extension Resistance L2TB Reps/Minutes 10x5 Comments cues for technique, posture and core stab Self-Care/Home Management Treatment Education Patient Education Body Mechanics,Home Exercise Program,Pain Management, Posture PT-OP-R Modalities Start: 11/12/20 16:52 Freq: Status: Active Protocol: Document 12/31/20 10:35 ANN (Rec: 12/31/20 11:16 [facility] [id number]) Hot Pack/Cold Pack Treatment Cold Pack Location lumbar spine Patient Position Hooklying Treatment Duration (minutes) 10 Patient Tolerance Good Comments 90/90 posistion PT-OP-T Assessment and Plan Start: 11/12/20 16:52 Freq: Status: Active Protocol: Document 12/31/20 10:35 ANN (Rec: 12/31/20 11:16 [facility] [id number]) Physical Therapy Assessment Goals Four Impairment postural dysfunction Short Term Goal (STG) Patient to demonstrate good understanding of neutral postural alignment and be able to self correct with min cues 12/31/20: goal met STG Duration MET Environmental Engineering Professor Goal (LTG) Patient able to demonstrate neutral postural alignment statically, and with dynamic functional activities. 12/31/20: goal met LTG Duration MET Three Impairment weakness throughout core and hips Short Term Goal (STG) patient to be independent and compliant with HEP for purposes of strenghtening and core stabilization for improved function and quality of life 12/31/20: goal met STG Duration MET Environmental Engineering Professor Goal (LTG) Patient to demonstrate at least 4+/5 muscle strength throughout core and hips 12/31/20:goal met LTG Duration MET Two Impairment pain varies from 3-8/10 in lumbar spine, especially with standing and walki Short Term Goal (STG) decrease pain to no greater than 5/10 with usual activity STG Duration MET Environmental Engineering Professor Goal (LTG) Decrease pain to no greater than 3/10 with usual activity 12/31/20:goal met 0/10 LTG Duration MET One Impairment Oswestry Disability Index score 20% Short Term Goal (STG) Improve activity tolerance as evidenced by decrease in NITO to no greater than 10% STG Duration MET Halfway Goal (LTG) Improve activity tolerane as evidenced by decrease in NITO to no greater than 5% 12/31/20: 0% LTG Duration MET Progress Towards Goals Progress Towards Goals Goals Met Assessment Summary Assessment All PT goals met, patient independent with HEP. REady for discharge. Physical Therapy Plan Discharge Physical Therapy Discharge Reasons Goals Met
== END 2021-01-01 09:05 | disposition home or self-care (01) ==
LOC: PHYS 10:30
PROVIDERS: PCP Physician Assistant; Referring Provider Physician Assistant; Visit Provider Physician Assistant
DX: M54.5 Low back pain (principal); R29.3 Abnormal posture; R53.1 Weakness
CPT/HCPCS: 97110; 97162; 97535

== ENCOUNTER → 2021-12-10 15:06 | Outpatient (CLI) | payer MEDICARE, SELFPAY | PROVIDERS: PCP Physician Assistant; Referring Provider Physician Assistant; Visit Provider Physician Assistant | DX: M85.851 Other specified disorders of bone density and structure, right thigh (principal); Z87.311 Personal history of (healed) other pathological fracture | CPT/HCPCS: 77080 ==

== ENCOUNTER 2023-02-13 12:03 | Emergency (ER) | payer MEDICARE, SELFPAY ==
[2023-02-13] VITALS (10 sets, daily range): BP systolic 164–187; BP diastolic 59–79; PULSE 67–74; RESP 14–16; TEMP 36.5; O2SAT 94–99; BMI 30.1
--- NOTE | 2023-02-13 12:29 | ED_ITS ---
HPI - Nausea/Vomiting/Diarrhea General Chief complaint: Nausea/Vomiting/Diarrhea Stated complaint: POST HIP SURGERY/N Time Seen by Provider: 02/13/23 12:28 Source: patient Mode of arrival: Ambulatory History of Present Illness HPI Narrative: 73-year-old female nonsmoker with history of relatively recent left total hip arthroplasty presents with a chief complaint of persistent nausea and abdominal cramping. She historically has trouble with moving her bowels in the aftermath of receiving anesthesia. She has been taking oxycodone for pain and MiraLax, she did have a bowel movement yesterday. She is not dizzy nor weak or lightheaded. She denies chest pain or shortness of breath. She is had no fever or chills. She is having no significant left hip pain and denies any redness, warmth, drainage Related Data Home Medications Medication Instructions Recorded Confirmed alendronate 70 mg tablet 70 mg PO QWEEKSU ##0 06/19/16 atorvastatin 10 mg tablet (Lipitor) 10 mg PO QDAY ##0 06/19/16 calcium carbonate 600 mg-vitamin 1 tab PO BID ##0 06/19/16 D3 10 mcg (400 unit) capsule (Calcium 600 with Vitamin D3) cetirizine 10 mg tablet 10 mg PO QDAY ##0 06/19/16 fluoxetine 10 mg tablet 10 mg PO HS ##0 06/19/16 multivitamin (Multiple Vitamins 1 tab PO QDAY ##0 10/07/16 tablet) Previous Rx's Medication Instructions Recorded aspirin 81 mg tablet,delayed 81 mg PO BID #60 tabs 10/23/16 release oxycodone 5 mg tablet 5 mg PO Q4HP PRN #90 tabs 10/23/16 tramadol 50 mg tablet 50 mg PO Q4HP PRN #90 tabs 10/24/16 prochlorperazine 25 mg rectal 25 mg CA BID #2 supp 10/25/16 suppository Allergies Allergy/AdvReac Type Severity Reaction Status Date / Time No Known Drug Allergies Allergy Verified 02/13/23 12:11 Review of Systems Review of Systems Narrative: GENERAL: Denies chills, fatigue, malaise, fever, sweats. HEENT: Denies sinus pain, ear pain, sore throat, difficulty swallowing, dizziness. RESPIRATORY: Denies dyspnea, cough, wheezing, hemoptysis, sputum. CARDIOVASCULAR: Denies chest pain, palpitations, orthopnea, edema, GASTROINTESTINAL: See HPI : Denies dysuria, frequency, incontinence, hematuria, urinary retention. MUSCULOSKELETAL: denies weakness, joint pain, or bony pain SKIN: Denies rash, skin lesions, or other NEUROLOGIC: Denies weakness, headache, numbness, change in speech, confusion, seizures, incoordination. PSYCHIATRIC: No concerning psychosocial issues. 12 point review of systems is negative except for those stated above Patient History Social History Smoking Status: Never smoker Smoking Status: Never smoker alcohol intake frequency: a few times a week Substance Use Type: does not use Exam Narrative Exam Narrative: GENERAL: [73] year old patient appears stated age. Well-developed patient, in mild distress. HEAD: Atraumatic. Normocephalic. EYES: Pupils equal round and reactive. Extraocular motions intact. No scleral icterus. No injection or drainage. ENT: Nose without bleeding, purulent drainage. Throat without erythema, tonsillar hypertrophy or exudate. Airway patent. NECK: Trachea midline. Non tender CARDIOVASCULAR: Regular rate and rhythm without murmurs, gallops, or rubs. RESPIRATORY: Clear to auscultation. Breath sounds equal bilaterally. No wheezes, rales, or rhonchi. GASTROINTESTINAL: Abdomen soft, non-tender, nondistended. bowel sounds present though decreased EXTREMITIES: No edema or joint tenderness. BACK: Nontender without deformity or crepitance. No flank tenderness. NEURO: AOx3. SKIN: No rash or erythema of visible areas Initial Vital Signs Initial Vital Signs: Vital Signs Temperature 97.7 F 02/13/23 12:08 Pulse Rate 72 02/13/23 12:08 Respiratory Rate 14 02/13/23 12:08 Blood Pressure 187/78 H 02/13/23 12:08 Pulse Oximetry 99 02/13/23 12:08 Oxygen Delivery Method Room Air 02/13/23 12:08 Course Course Course Narrative: patient given Dulcolax suppository and does have a small firm stool, offered enema but patient refused Orders Ordered: ED Orders 02/13/23 12:30 XR acute abdomen series Stat 02/13/23 12:31 XR hip w pel if done LT 2V Stat 02/13/23 12:40 Complete Blood Count AUTO DIFF Stat Comprehensive Metabolic Panel Stat Lipase Stat 02/13/23 14:42 EKG-12 Lead Stat Ondansetron HCl (Ondansetron 4 Mg/2 Ml Inj) 4 mg IV NOW PRN PRN Reason: Nausea And Vomiting Last Admin: 02/13/23 12:38 Dose: 4 mg Documented By: ABIGAIL Discontinued Medications Al Hydrox/Mg Hydrox/Simethicone (Mag Hydrox/Alum/Simeth 30 Ml Udc) 30 ml PO NOW ONE Stop: 02/13/23 13:53 Last Admin: 02/13/23 14:00 Dose: 30 ml Documented By: MARRY Bisacodyl (Bisacodyl 10 Mg Supp) 10 mg CA NOW ONE Stop: 02/13/23 14:03 Last Admin: 02/13/23 14:14 Dose: 10 mg Documented By: ABIGAIL Sodium Chloride (Normal Saline 0.9%) 1,000 mls @ 1,000 mls/hr IV BOLUS ONE Stop: 02/13/23 13:29 Last Infusion: 02/13/23 13:40 Dose: 0 mls/hr Documented By: Admin: 02/13/23 12:40 Dose: 1,000 mls/hr Documented By: ABIGAIL Pantoprazole Sodium (Pantoprazole 40 Mg Vial) 40 mg IV NOW ONE Stop: 02/13/23 12:31 Last Admin: 02/13/23 13:04 Dose: 40 mg Documented By: ABIGAIL Vital Signs Vital signs: Vital Signs - 8 hr 02/13/23 12:08 02/13/23 13:05 02/13/23 13:06 Temperature 97.7 F Pulse Rate 72 68 Respiratory Rate 14 Blood Pressure 187/78 H 183/79 H Pulse Oximetry 99 97 Oxygen Delivery Method Room Air 02/13/23 13:06 02/13/23 13:30 02/13/23 13:30 Temperature Pulse Rate 67 69 Respiratory Rate Blood Pressure 169/72 H Pulse Oximetry 99 95 Oxygen Delivery Method 02/13/23 14:00 02/13/23 14:00 02/13/23 14:30 Temperature Pulse Rate 71 Respiratory Rate Blood Pressure 171/79 H 167/59 H Pulse Oximetry 98 Oxygen Delivery Method 02/13/23 14:30 02/13/23 15:00 02/13/23 15:01 Temperature Pulse Rate 71 71 Respiratory Rate Blood Pressure 182/77 H Pulse Oximetry 95 94 Oxygen Delivery Method 02/13/23 15:01 02/13/23 15:30 02/13/23 15:30 Temperature Pulse Rate 71 72 Respiratory Rate Blood Pressure 165/75 H Pulse Oximetry 98 96 Oxygen Delivery Method MDM - Nausea/Vomiting/Diarrhea Lab Data 02/13/23 12:40 02/13/23 12:40 Labs: Lab Results 02/13/23 02/13/23 Range/Units 12:40 12:40 WBC 7.8 (4.5-11.0) X10^3/uL RBC 3.34 L (4.0-5.2) X10^6/uL Hgb 10.8 L (12.0-16.0) g/dL Hct 31.2 L (36-46) % MCV 93.4 (80-100) fL MCH 32.3 (26-34) PG MCHC 34.6 (30-36) % RDW 13.5 (11.6-14.8) % Plt Count 268 (150-400) X10^3/uL Neut % (Auto) 75.1 H (50-75) % Lymph % (Auto) 8.2 L (25-40) % [place] % (Auto) 14.5 H (3-14) % Eos % (Auto) 1.7 L (2-4) % Baso % (Auto) 0.5 (0-2) % Neut # (Auto) 5800 (5473-9893) /uL Lymph # (Auto) 600 L (0219-4932) /uL [place] # (Auto) 1100 H (0-900) /uL Eos # (Auto) 100 (0-450) /uL Baso # (Auto) 0 (0-100) /uL Sodium 131 L (137-145) mmol/L Potassium 4.3 (3.4-5.1) mmol/L Chloride 99 (98-107) mmol/L Carbon Dioxide 27 (22-32) mmol/L BUN 18 H (7-17) mg/dL Creatinine 0.83 (0.52-1.04) mg/dL Estimated GFR > 60 (>60) mL/min BUN/Creatinine Ratio 21.7 (6-22) Glucose 111 H (80-110) mg/dL Calcium 8.8 (8.4-10.2) mg/dL Total Bilirubin 0.8 (0.2-1.3) mg/dL AST 62 H (14-36) IU/L ALT 34 (<35) IU/L Alkaline Phosphatase 58 (38-126) U/L Total Protein 6.9 (6.3-8.2) g/dL Albumin 3.6 (3.5-5.0) g/dL Globulin 3.3 (1.7-4.1) g/dL Albumin/Globulin Ratio 1.1 (1.0-2.8) Lipase 65 (23-300) U/L Urine Dip Bedside Urine Glucose Negative Bedside Urine Bilirubin - Negative Bedside Urine Ketone +/- 5 Urine Specific [place] 1.000 Bedside Urine Occult Blood - Negative Bedside Urine pH 7.0 Bedside Urine Protein - Negative Bedside Urine Urobilinogen - Negative Bedside Urine Nitrite - Negative Bedside Urine Leukocytes - Negative Esterase MDM Narrative Medical decision making narrative: [73] year old patient presents with nausea Multiple etiologies for patient's symptoms considered including, but not limited to: [ medication reaction ( opioids ) versus constipation versus bowel obstruction versus other] Prior Charts reviewed in our EMR Primary Historian: patient Labs reviewed and interpreted by myself: no leukocytosis or left shift, relative anemia at 10.8 and 31, last measured in 2017 at 11.8. Sodium 131, other electrolytes and normal limits, renal function at baseline 0 point 8 3 Imaging reviewed: hip x-ray with expected postsurgical sequela, chest abdomen x- ray notes large stool burden, no obstruction patient's history and physical exam are reassuring, multiple causes of symptoms considered as noted above. Patient does not have much in the way of pain therefore obstruction thought unlikely, especially given appearance of imaging. Patient has been taking pain medications which are likely contributing to slow transit of her bowels but also can be an independent cause of her cassidy sea. No evidence of obstruction or infectious cause. She is tolerating orals, had a small bowel movement after Dulcolax suppository. Offered enema but would prefer to do this at home. Encouraged to increase her omeprazole to twice daily for the next week. Findings and discharge diagnosis discussed with patient/family followed by verbalization of understanding Return precautions discussed with patient/family whom verbalize understanding of diagnosis and plan Discharge Plan Departure Patient Disposition: Home Clinical Impression: Acute constipation, Nausea Instructions: DI for Constipation, DI for Nausea -- Adult Activity Restrictions/Additional Instructions: *You have been diagnosed with [ abdominal pain and nausea due to constipation ] *What to do: *Take over the counter medications as directed: 1. Metamucil - is a bulk forming laxative and adds fiber 2. Colace - softens your stool 3. Dulcolax suppository - stimulates your bowels *Follow up with your primary care provider in 2-3 days, call for appointment *Return to ER if you should have any new, worsening or concerning symptoms *Drink plenty of water and eat foods high in fiber *Stay as active as you can as this helps move your bowels as well Prescriptions: No Action atorvastatin [Lipitor] 10 MG tablet 10 mg PO QDAY Qty: 0 alendronate 70 MG tablet 70 mg PO QWEEKSU Qty: 0 fluoxetine 10 MG tablet 10 mg PO HS Qty: 0 cetirizine 10 MG tablet 10 mg PO QDAY Qty: 0 calcium carbonate-vitamin D3 [Calcium 600 with Vitamin D3] 600 MG/200 IU capsu le 1 tab PO BID Qty: 0 multivitamin [Multiple Vitamins] 1 EACH tablet 1 tab PO QDAY Qty: 0 aspirin 81 MG tablet,delayed release (DR/EC) 81 mg PO BID Qty: 60 0RF oxycodone 5 MG tablet 5 mg PO Q4HP PRNQty: 90 0RF tramadol 50 MG tablet 50 mg PO Q4HP PRNQty: 90 0RF prochlorperazine 25 MG suppository 25 mg CA BID Qty: 2 1RF Referrals: Dana Dunlap PA-C [Primary Care Provider] - Stand Alone Forms: Patient Portal/API
--- NOTE | 2023-02-13 12:30 | DI.RAD.S_ITS ---
PROCEDURE: XR ACUTE ABDOMEN SERIES INDICATIONS: N/V, recent surgery (hip) TECHNIQUE: One view chest and two views of the abdomen were acquired. COMPARISON: None. FINDINGS: Surgical changes and devices: Surgical clips right upper quadrant consistent with prior cholecystectomy. Left total hip arthroplasty partially visualized. Chest: Lungs are clear. Heart size is normal. No pleural effusions. No pneumoperitoneum. Abdomen: Bowel gas pattern is normal except for mild colonic obstipation. No suspicious calcifications. Visualized solid organ contours appear normal. Bones: No suspicious bony lesions. IMPRESSION: Mild colonic obstipation, prior cholecystectomy. No bowel obstruction suspected. Dictated by: Kyler Tellez M.D. on 02/13/2023 at 13:08 Approved by: Kyler Tellez M.D. on 02/13/2023 at 13:08
--- NOTE | 2023-02-13 12:31 | DI.RAD.S_ITS ---
PROCEDURE: XR HIP W PEL IF DONE LT 2V INDICATIONS: recent hip surgery TECHNIQUE: AP pelvis with lateral view(s) of the left hip(s). COMPARISON: [facility], [facility], XR PELVIS WITH LATERAL HIP LEFT, 12/25/2021, 11:18. [facility], CR, XR HIP W PEL IF DONE LT 2V, 01/05/2019, 10:17. FINDINGS: Bones: No fractures or dislocations. Left total hip arthroplasty has been performed. There is no evidence of device loosening or disruption. Mild right hip degenerative change stable over time. Pelvic ring appears intact. No suspicious bony lesions. Soft tissues: The visualized bowel gas pattern is normal. No suspicious soft tissue calcifications. IMPRESSION: Left total hip arthroplasty component positioning appears normal. Dictated by: Kyler Tellez M.D. on 02/13/2023 at 13:08 Approved by: Kyler Tellez M.D. on 02/13/2023 at 13:10
[2023-02-13] MEDS: ONDANSETRON 4 MG/2 ML INJ IV (12:38)
[2023-02-13] MEDS: SODIUM CHLORIDE 0.9% 1,000 ML 1000 ML IV (12:40)
[2023-02-13 12:50] LABS: Add Manual Diff / Slide Review NO; Basophils Absolute Auto 0 /uL (0-100); Basophils Percent Auto 0.5 % (0-2); Eosinophils Absolute Auto 100 /uL (0-450); Eosinophils Percent Auto 1.7 % (2-4); Hematocrit 31.2 % (36-46); Hemoglobin 10.8 g/dL (12.0-16.0); Lymphocytes Absolute Auto 600 /uL (1100-4500); Lymphocytes Percent Auto 8.2 % (25-40); Mean Corpuscular HGB Conc 34.6 % (30-36); Mean Corpuscular Hemoglobin 32.3 PG (26-34); Mean Corpuscular Volume 93.4 fL (80-100); Monocytes Absolute Auto 1100 /uL (0-900); Monocytes Percent Auto 14.5 % (3-14); Neutrophils Absolute Auto 5800 /uL (1500-7000); Neutrophils Percent Auto 75.1 % (50-75); Platelet Count 268 X10^3/uL (150-400); Red Blood Cell Count 3.34 X10^6/uL (4.0-5.2); Red Cell Distribution Width 13.5 % (11.6-14.8); White Blood Cell Count 7.8 X10^3/uL (4.5-11.0)
[2023-02-13] MEDS: PANTOPRAZOLE 40 MG VIAL IV (13:04)
[2023-02-13 13:10] LABS: Alanine Aminotransferase 34 IU/L (<35); Albumin 3.6 g/dL (3.5-5.0); Albumin Globulin Ratio 1.1 (1.0-2.8); Alkaline Phosphatase 58 U/L (38-126); Aspartate Aminotransferase 62 IU/L (14-36); BUN Creatinine Ratio 21.7 (6-22); Bilirubin Total 0.8 mg/dL (0.2-1.3); Blood Urea Nitrogen 18 mg/dL (7-17); Calcium 8.8 mg/dL (8.4-10.2); Carbon Dioxide 27 mmol/L (22-32); Chloride 99 mmol/L (98-107); Estimated Glomerular Filt Rate > 60 mL/min (>60); Globulin 3.3 g/dL (1.7-4.1); Glucose 111 mg/dL (80-110); Lipase 65 U/L (23-300); Potassium 4.3 mmol/L (3.4-5.1); Sodium 131 mmol/L (137-145); Total Protein 6.9 g/dL (6.3-8.2)
[2023-02-13 13:12] LABS: HEMOLYSIS 77 (0-50)
[2023-02-13] MEDS: MAG HYDROX/ALUM/SIMETH 30 ML UDC PO (14:00)
[2023-02-13] MEDS: BISACODYL 10 MG SUPP PR (14:14)
== END 2023-02-13 16:52 | disposition home or self-care (01) ==
PROVIDERS: Emergency Provider Emergency Medicine; PCP Physician Assistant
DX: K59.00 Constipation, unspecified (principal); R11.0 Nausea
CPT/HCPCS: 36415; 73502; 74022; 80053; 81003; 83690; 85025; 93005; 96361; 96374; 96375; 99284; C9113; J2405

== ENCOUNTER → 2025-05-29 09:15 | Outpatient (CLI) | payer MEDICARE, SELFPAY ==
--- NOTE | 2025-05-29 09:18 | DI.CT.S_ITS ---
PROCEDURE: CT SINUS SCREEN WO CON INDICATIONS: chronic pansinusitis TECHNIQUE: Noncontrast 3.0 mm axial images acquired from the frontal sinuses to the mid- sella, with coronal and sagittal reformats. For radiation dose reduction, the following was used: automated exposure control, adjustment of mA and/or kV according to patient size. COMPARISON: None. FINDINGS: Image quality: Excellent. Sinuses: Very minimal scattered mucosal thickening most prominent in the left maxillary sinus. No fluid levels. Ostiomeatal Complexes: Ostiomeatal complexes are patent. Miscellaneous: Visualized intra-orbital contents are normal. No juan bullosa or paradoxical turbinate curvature. No nasal septal deviation. IMPRESSION: Minimal mucosal thickening particularly in the left maxillary sinus. Dictated by: Pearl Monge M.D. on 05/29/2025 at 16:03 Approved by: Pearl Monge M.D. on 05/29/2025 at 16:04
== END ==
LOC: CT 09:17
PROVIDERS: PCP Physician Assistant; Referring Provider Otolaryngology; Visit Provider Otolaryngology
DX: J32.4 Chronic pansinusitis (principal); J02.9 Acute pharyngitis, unspecified; R09.82 Postnasal drip
CPT/HCPCS: 70486